=== PATIENT | female | born 1985 | race Caucasian/White ===

== ENCOUNTER 2018-07-31 14:47 | Inpatient (IN) ==
[2018-07-31 14:59] VITALS: BMI 27.2
--- NOTE | 2018-07-31 15:18 | DR.SOBA ---
HPI - Time Seen Time seen: 15:14 - Primary Care Physician Primary Care Physician: FELICIA - Complaints Chief Complaint Doctors Comments: Patient is complaining of cold, cough, SOB for the past two weeks getting progressively worst. Patient states she has been taking over the counter medicines without improvement. She smokes one pack cigarettes daily. States she do not have a local doctor. She denies chest pain but has been wheezing at times. she has been getting dizzy when she stand. States her periods has been regular and she is taking control pills. Chief Complaint:: PT C/O SOB, C/C/C, FEVER, CHILLS, FLU LIKE SYMPTOMS. PT STATES SHE HAS BEEN BATTLING THESE SYMPTOMS 2 WEEKS. PT STATES SHE HAS A HISTORY OF PNUEMONIA. NOTED PT'S SPO2 TO BE 87-91% ON RA AND SHE IS HAVING DIFFICULTY GETTING WORDS OUT D/T THE SOB - Reviewed Nurses Notes Reviewed: Yes - Source History Provided: Patient - Mode of Arrival Mode of Arrival: Ambulatory - Timing Onset of Chief Complaint: 07/17/18 - Duration Duration: Weeks - Context Onset:: At Rest PE Risk Factors:: None History of:: None Currently on:: Neither Prehospital Care:: None - Modifying Factors Worsens:: Exertion Improves:: Nothing - Associated Signs and Symptoms Associated Signs and Symptoms: Wheeze, Cough, Nasal Congestion - If Chest Pain Quality: denies: Sharp, Stabbing, Squeezing, Pressure like, Heavy, Crushing, Burning, Aching, Pleuritic, Other Location: denies: Right Upper Chest, Right Lower Chest, Left Upper Chest, Left Lower Chest, Substernal, Chest Wall - If Cough Cough: Nonproductive PMH - PMH Past Medical History: No Past Surgical History: Yes (removal of cyst) - Family History History of Family Medical Conditions: Yes Family Medical History: Diabetes Mellitus - Social History Does patient currently use any type of tobacco product: Yes Have you used tobacco products in the last 12 months: Yes Type of Tobacco Use: Cigarettes Does any household member use tobacco: Yes Alcohol Use: None Do you use any recreational Drugs:: No Lives With: Family Lives Where: Home - infectious screening In the last 2 months have you had wt loss of >10#?: NO Have you had fever, night sweats or hemotysis?: No Have you traveled outside the country in the last 6 months?: No Isolation: Standard ROS - Review of Systems Constitutional: No Symptoms Reported Eyes: No Symptoms Reported ENTM: No Symptoms Reported, Nose Discharge, Nose Congestion Respiratoy: Non-Productive Cough, Short of Breath, Wheezing Cardiovascular: No Symptoms Reported. negative: See HPI, Chest Pain, Edema, Palpitations, Syncope, Cyanosis, Skin Mottling, Other Gastrointestinal/Abdominal: No Symptoms Reported, Nausea Genitourinary: No Symptoms Reported. negative: See HPI, Discharge, Dysuria, Frequency, Hematuria, Pain, Bleeding, Other Neurological: No Symptoms Reported. negative: See HPI, Anxiety, Depressed, Emotional Problems, Headache, Numbness, Paresthesia, Pre-existing Deficit, Seizure, Tingling, Tremors, Weakness, Dizziness, Problems Walking, Speech Problem, Other Musculoskeletal: No Symptoms Reported Integumentary: No Symptoms Reported Hematologic/Lymphatic: No Symptoms Reported. negative: See HPI, Anemia, Blood Clots, Easy Bleeding, Easy Bruising, Swollen Glands, Lymphadenopathy, Other Endocrine: No Symptoms Reported Psychiatric: No Symptoms Reported. negative: See HPI, Anxiety, Depression, Hallucinations, Excessive crying, Suicidal, Other PE - General Limitations: No Limitations General Appearance: Alert, In No Apparent Distress - Head Head Exam: Normal Inspection, Atraumatic, Normocephalic - Eyes Eye exam: Normal Appearance, PERRL, EOMI. negative: Scleral Icterus, Conjunctival Injection, Nystagmus, Miosis, Mydrasis, Periorbital Swelling, Periorbital Tenderness, Other - ENT ENT Exam: Normal Exam, Normal Oropharynx, Normal External Ear Exam, Mucous Membranes Moist, TM's Normal Bilaterally - Neck Neck Exam: Normal Inspection, Full ROM, Trachea Midline - Chest Chest Inspection: Normal Inspection, Symmetric Chest Wall Rise - Respiratory Respiratory Exam: Normal Lung Sounds Bilat Respiratory Exam: Bilateral Clear to Auscultation - Cardiovascular Cardiovascular Exam: Regular Rate, Normal Rhythm, Normal Heart Sounds - Abdominal Exam Abdominal Exam: Normal Inspection, Normal Bowel Sounds, Soft Abdominal Tenderness: negative: RUQ, RLQ, LUQ, LLQ, Epigastrium, Suprapubic, Diffuse, Mild, Moderate, Severe, Other - Extremities Extremities Exam: Normal Inspection, Full ROM, Normal Capillary Refill. negative: Tenderness, Edema, Joint Swelling, Calf Tenderness, Other - Back Back Exam: Normal Inspection, Full ROM. negative: Tenderness, (R) CVA Tenderness, (L) CVA Tenderness, Muscle Spasm, Paraspinal Tenderness, Vertebral Tenderness, Rashes, (R) Sciatic Notch Tenderness, (L) Sciatic Notch Tendern, (R) Straight Leg Raise, (L) Straight Leg Raise, Other - Neurologic Neurological Exam: Alert, Oriented X3, CN II-XII Intact, Normal Gait, Reflexes Normal - Psychiatric Psychiatric Exam: Normal Affect, Normal Mood - Skin Skin Exam: Warm, Dry, Intact, Normal Color - Vital Signs Vitals: Temperature 97.9 F Pulse Rate [Left Brachial] 73 Pulse Rate [Standing] 82 Pulse Rate [Sitting] 91 Pulse Rate [Lying] 82 Pulse Rate 99 Respiratory Rate 20 Blood Pressure [Right Arm] 101/63 Blood Pressure [Standing] 116/71 Blood Pressure [Sitting] 129/76 Blood Pressure [Lying] 122/73 Blood Pressure 123/72 O2 Sat by Pulse Oximetry 93 Course - Reevaluation 1st: Improved - Consultation Called: 18:04 Call Returned: 18:04 (Dr. Freeman to admit) - Education/Counseling Education/Counseling: Patient, Family Educated On: Treatment, Diagnosis, Needs for Follow Up ROR - Labs Reviewed Laboratory Results Reviewed?: Yes (All labs and x-ray results reviewed and discussed with patient) Result Diagrams: 07/31/18 15:26 07/31/18 15:26 - XRAY XRAY Interpreted by: Radiologist (CXR: Prominent hilar structures may reflect adenopathy. Bilateral pumonary infiltrates consistent with pneumonia, edema or fibrosis.) XRAY Findings: CTA chest: No pulmonary embolus. Siffuse patchy ground-glass opacities a - Labs Reviewed Laboratory: WBC 15.5 X10^3/uL (3.6-10.0) H 07/31/18 15: RBC 4.07 X10^6/uL (3.5-5.4) 07/31/18 15:26 Hgb 11.9 g/dL (12.0-16.0) L 07/31/18 15: Hct 35.0 % (36.0-47.0) L 07/31/18 15:26 MCV 86.1 fL (80.0-100.0) 07/31/18 15: MCH 29.2 pg (27.0-34.0) 07/31/18 15: MCHC 33.9 g/dL (33.0-35.0) 07/31/18 15: RDW 14.1 % (11.6-16.5) 07/31/18 15: Plt Count 594 X10^3/uL (150.0-450.0) H 07/31/18 15: MPV 7.4 fL (7.4-11.0) 07/31/18 15: Neut % (Auto) 75.9 % (42.0-75.0) H 07/31/18 15: Lymph % (Auto) 17.7 % (21.0-51.0) L 07/31/18 15: [place] % (Auto) 1.7 % (0.0-13.0) 07/31/18 15: Eos % (Auto) 4.1 % (0.9-2.9) H 07/31/18: Baso % (Auto) 0.6 % (0.2-1.0) 07/31/18 15: Neut # (Auto) 11.8 x10^3/uL (2.2-4.8) H 07/31/18 15: Lymph # (Auto) 2.7 X10^3/uL (1.3-2.9) 07/31/18 15:26 [place] # (Auto) 0.3 x10^3/uL (0.3-0.8) 07/31/18 15: Eos # (Auto) 0.6 x10^3/uL (0.0-0.2) H 07/31/18: Baso # (Auto) 0.1 X10^3/uL (0.0-0.1) 07/31/18: Absolute Nucleated RBC 0.0 /100WBC 07/31/18 15: INR Target Range - 07/31/18: INR 1.04 (0.8-1.3) 07/31/18 15: APTT 34.1 SECONDS (22.9-36.5) 07/31/18 15: PTT Comment - 07/31/18 15: D-Dimer 1670 ng/mL (0-400) H* 07/31/18 15: Sodium 137 mmol/L (136-145) 07/31/18 15:26 Corrected Sodium 137 mmol/L (136-145) 07/31/18 15:26 Potassium 3.3 mmol/L (3.5-5.1) L 07/31/18 15:26 Chloride 103 mmol/L (98-107) 07/31/18 15:26 Carbon Dioxide 22.7 mmol/L (21-32) 07/31/18 15:26 BUN 16 mg/dL (7-18) 07/31/18 15:26 Creatinine 0.77 mg/dL (0.55-1.02) 07/31/18 15:26 Est GFR (MDRD) Af Amer > 60 (>60) 07/31/18 15:26 Est GFR (MDRD) Non-Af > 60 (>60) 07/31/18 15:26 Glucose 117 mg/dL (65-99) H 07/31/18 15:26 Calcium 8.6 mg/dL (8.5-10.1) 07/31/18 15:26 Corrected Calcium 9.8 mg/dL (8.5-10.1) 07/31/18 15:26 Total Bilirubin 0.10 mg/dL (0.2-1.0) L 07/31/18 15:26 AST 27 Units/L (15-37) 07/31/18 15:26 ALT 10 Units/L (12-78) L 07/31/18 15:26 Alkaline Phosphatase 160 Units/L (46-116) H 07/31/18 15:26 Creatine Kinase 31 Units/L (26-192) 07/31/18 15:26 CK-MB (CK-2) < 1.0 ng/mL (0-4.0) 07/31/18 15:26 CK/CKMB % Calc 3.2 % (<4) 07/31/18 15:26 Troponin I < 0.02 ng/mL (0-1.5) 07/31/18 15:26 B-Natriuretic Peptide 72.4 pg/mL (0-79) 07/31/18 15:26 Total Protein 7.0 g/dL (6.4-8.2) 07/31/18 15:26 Albumin 2.5 g/dL (3.4-5.0) L 07/31/18 15:26 Globulin 4.5 g/dL (2.5-4.5) 07/31/18: Albumin/Globulin Ratio 0.6 Ratio (1.1-2.1) L 07/31/18: HCG, Qual Negative <10 mIU/mL 07/31/18: Specimen Type Clean catch urine 07/31/18 15: Urine Color Dark yellow (YELLOW) 07/31/18: Urine Appearance Clear (CLEAR) 07/31/18: Urine pH 5.0 (5.0 - 8.0) 07/31/18 15: Ur Specific [place] 1.020 (1.000-1.030) 07/31/18: Urine Protein 2+ (NEGATIVE) 07/31/18: Urine Glucose (UA) Negative (NEGATIVE) 07/31/18 15: Urine Ketones Negative (NEGATIVE) 07/31/18 15: Urine Occult Blood 2+ (NEGATIVE) 07/31/18: Urine Nitrite Negative (NEGATIVE) 07/31/18: Urine Bilirubin 1+ (NEGATIVE) 07/31/18 15: Urine Urobilinogen 2+ (NORMAL) 07/31/18 15: Ur Leukocyte Esterase 1+ (NEGATIVE) 07/31/18 15: Urine RBC 0-2 /HPF (NONE SEEN) 07/31/18 15: Urine WBC 0-2 /HPF (NONE SEEN) 07/31/18 15: Ur Squamous Epith Cells Moderate /HPF (NEGATIVE) 07/31/18 15: Urine Bacteria Trace /HPF (NEGATIVE) 07/31/18 15: Ur Culture Indicated? No/not indicated 07/31/18 15: Urine Opiates Screen Negative (NEG=<300) 07/31/18 15: Urine Methadone Screen Negative (NEG=<300) 07/31/18: Ur Barbiturates Screen Negative (NEG=<200) 07/31/18 15: Ur Phencyclidine Scrn Negative (NEG=<25) 07/31/18 15: Ur Amphetamines Screen Negative (NEG=<1000) 07/31/18 15: U Benzodiazepines Scrn Negative (NEG=<200) 07/31/18 15: Urine Cocaine Screen Negative (NEG=<300) 07/31/18 15:28 U Marijuana (THC) Screen Negative (NEG=<50) 07/31/18 15:28 Influenza Type A (PCR) Negative (NEGATIVE) 07/31/18 15:28 Influenza Type B (PCR) Negative (NEGATIVE) 07/31/18 15:28 - Diagnosis Discharge Problem: Bilateral pulmonary infiltrates on CXR, Hypoxemia, Pneumonia, Hypokalemia - Discharge Plan Condition: Stable - Follow ups/Referrals Follow ups/Referrals: CRESCENCIO ALCOCER [Primary Care Provider] - 3 days - Instructions
[2018-07-31 15:35] LABS: BASOPHILS # (AUTO) 0.1 X10^3/uL (0.0-0.1); BASOPHILS % (AUTO) 0.6 % (0.2-1.0); EOSINOPHILS # (AUTO) 0.6 x10^3/uL (0.0-0.2); EOSINOPHILS % (AUTO) 4.1 % (0.9-2.9); HEMOGLOBIN 11.9 g/dL (12.0-16.0); LYMPHOCYTES # (AUTO) 2.7 X10^3/uL (1.3-2.9); LYMPHOCYTES % (AUTO) 17.7 % (21.0-51.0); MEAN CORPUSCULAR HEMOGLOBIN 29.2 pg (27.0-34.0); MEAN CORPUSCULAR HGB CONC 33.9 g/dL (33.0-35.0); MEAN CORPUSCULAR VOLUME 86.1 fL (80.0-100.0); MEAN PLATELET VOLUME 7.4 fL (7.4-11.0); MONOCYTES # (AUTO) 0.3 x10^3/uL (0.3-0.8); MONOCYTES % (AUTO) 1.7 % (0.0-13.0); NEUTROPHILS # (AUTO) 11.8 x10^3/uL (2.2-4.8); NEUTROPHILS % (AUTO) 75.9 % (42.0-75.0); PLATELET COUNT 594 X10^3/uL (150.0-450.0); RED BLOOD COUNT 4.07 X10^6/uL (3.5-5.4); RED CELL DISTRIBUTION WIDTH 14.1 % (11.6-16.5); WHITE BLOOD COUNT 15.5 X10^3/uL (3.6-10.0)
[2018-07-31 15:51] LABS: SERUM PREGNANCY TEST, QUAL NEGATIVE <10 mIU/mL
[2018-07-31 15:56] LABS: BLOOD UREA NITROGEN 16 mg/dL (7-18); CALCIUM 8.6 mg/dL (8.5-10.1); CARBON DIOXIDE 22.7 mmol/L (21-32); CHLORIDE 103 mmol/L (98-107); COR NA(FOR HYPERGLY) 137 mmol/L (136-145); CREATININE 0.77 mg/dL (0.55-1.02); SODIUM 137 mmol/L (136-145); TROPONIN I < 0.02 ng/mL (0-1.5); eGFR NON BLACK RACES > 60 (>60)
[2018-07-31 16:00] LABS: ALANINE AMINOTRANSFERASE 10 Units/L (12-78); ALBUMIN 2.5 g/dL (3.4-5.0); ALKALINE PHOSPHATASE 160 Units/L (46-116); ASPARTATE AMINO TRANSFERASE 27 Units/L (15-37); COR CA(FOR HYPOALB) 9.8 mg/dL (8.5-10.1); CREATINE KINASE 31 Units/L (26-192); CREATINE KINASE MB < 1.0 ng/mL (0-4.0)
--- NOTE | 2018-07-31 16:07 | RAD ---
Examination: Chest, PA and lateral views History: SOB Comparison 05/28/2016 Findings: Continued normal heart size. Prominent hilar structures bilaterally. Diffuse interstitial and alveolar infiltrates as previously described. No discrete mass, pneumothorax or pleural fluid. Impression: Findings described are very similar to multiple prior chest studies. Prominent hilar structures may reflect adenopathy. Bilateral pulmonary infiltrates consistent with pneumonia, edema or peribronchial fibrosis. Is there history of sarcoidosis? Chest CT may provide additional evaluation if specific diagnosis has not been established. Reported By:
[2018-07-31 16:08] LABS: CKMB % 3.2 % (<4)
[2018-07-31 16:08] LABS: BILIRUBIN,URINE 1+ (NEGATIVE); BLOOD/HEMOGLOBIN,URINE 2+ (NEGATIVE); GLUCOSE, URINE NEGATIVE (NEGATIVE); KETONES,URINE NEGATIVE (NEGATIVE); LEUKOCYTE ESTERASE ,URINE 1+ (NEGATIVE); NITRITES,URINE NEGATIVE (NEGATIVE); PROTEIN,URINE 2+ (NEGATIVE); UROBILINOGEN,URINE 2+ (NORMAL)
[2018-07-31 16:10] LABS: B-TYPE NATRIURETIC PEPTIDE 72.4 pg/mL (0-79)
[2018-07-31 16:17] LABS: APPEARANCE,URINE CLEAR (CLEAR); BACTERIA,URINE TRACE /HPF (NEGATIVE); COLOR,URINE DARK YELLOW (YELLOW); RBC,URINE 0-2 /HPF (NONE SEEN); SQUAMOUS EPITHELIAL CELL,UR MODERATE /HPF (NEGATIVE)
[2018-07-31] MEDS ORDERED: K-LYTE EFFERVESCENT PO STA (16:29)
[2018-07-31] MEDS ORDERED: ROCEPHIN VIAL 1 GRAM IVP ONE (16:30)
[2018-07-31] MEDS ORDERED: LASIX IVP STA (16:30)
[2018-07-31] MEDS ORDERED: K-LYTE EFFERVESCENT ONE (17:44)
[2018-07-31] MEDS ORDERED: ROCEPHIN VIAL 1 GRAM ONE (17:44)
--- NOTE | 2018-07-31 17:54 | CT ---
CT ANGIOGRAPHY OF THE CHEST CLINICAL HISTORY: 32-year-old female with shortness of breath, cough and congestion with fever and chills. COMPARISON: Chest radiograph this date. TECHNIQUE: CT angiogram of the chest was performed following the uncomplicated administration of 75 mL Omnipaque 350 intravenous contrast as per routine pulmonary embolus protocol. Coronal and Sagittal reformats provided. MIP reformats are submitted for review. FINDINGS: No pulmonary embolus is seen. There is no thoracic aortic dissection. The heart is normal in size and there is no pericardial effusion. No significant axillary adenopathy with multiple AP window, pretracheal, paratracheal and subcarinal lymph nodes measuring up to 1.6 cm in the subcarinal location. Diffuse patchy ground-glass opacities throughout the lungs bilaterally in a mosaic attenuation pattern without definitive mass lesion. Underlying nodule is not excluded. No effusion or pneumothorax. The trachea and mainstem bronchi are patent. Imaged upper abdomen is without acute abnormality The arteriovascular structures are within normal limits. Soft tissues are normal. The osseous structures are intact without fracture or malalignment. IMPRESSION: 1. No pulmonary embolus. 2. Diffuse patchy ground-glass opacities and mosaic attenuation pattern throughout the lungs bilaterally with enlarged lymph nodes within the mediastinum. Multifocal multi lobar pneumonia, sarcoid and other inflammatory process are within the differential. Correlate with serology and clinically and follow-up to resolution. See above. Reported By:
[2018-07-31] MEDS ORDERED: TUSSIONEX PENNKINETIC SUSP PO PRN (18:06)
[2018-07-31] MEDS ORDERED: SALINE 3% 15 ML NEB TX NEB ONE (18:24)
[2018-07-31] MEDS ORDERED: FLUVIRIN IM ONE (19:00)
[2018-07-31] MEDS ORDERED: NS 1/2 1000 ML IV 1,000 ML IV ONE (19:31)
[2018-07-31] MEDS: ROCEPHIN VIAL 1 GRAM IVP SCH (19:46)
[2018-07-31] MEDS: LEVAQUIN PREMIX IV 750 MG 750 MG/150 ML BAG IV SCH (19:46)
[2018-07-31] MEDS: NS 1/2 1000 ML IV 1,000 ML IV SCH (19:47)
[2018-07-31] MEDS: PULMICORT NEB TX 0.5 MG NEB SCH (20:26)
[2018-07-31] MEDS: DUONEB 0.5 MG/3 MG NEB SCH (20:26)
[2018-07-31] MEDS: ROBITUSSIN DM PO SCH (21:06)
[2018-07-31] MEDS ORDERED: ZOFRAN TAB 4 MG PO PRN (23:09)
[2018-08-01] MEDS: DUONEB 0.5 MG/3 MG NEB SCH ×6 (00:36→20:11)
[2018-08-01] MEDS ORDERED: CHLORASEPTIC SPRAY MT PRN (00:58)
[2018-08-01] MEDS ORDERED: CHLORASEPTIC SPRAY MT ONE (01:01)
[2018-08-01 05:22] LABS: BASOPHILS # (AUTO) 0.1 X10^3/uL (0.0-0.1); BASOPHILS % (AUTO) 0.6 % (0.2-1.0); EOSINOPHILS # (AUTO) 0.3 x10^3/uL (0.0-0.2); EOSINOPHILS % (AUTO) 3.6 % (0.9-2.9); HEMATOCRIT 30.4 % (36.0-47.0); HEMOGLOBIN 10.6 g/dL (12.0-16.0); LYMPHOCYTES % (AUTO) 21.6 % (21.0-51.0); MEAN CORPUSCULAR HEMOGLOBIN 30.9 pg (27.0-34.0); MEAN CORPUSCULAR HGB CONC 34.8 g/dL (33.0-35.0); MEAN CORPUSCULAR VOLUME 88.8 fL (80.0-100.0); MEAN PLATELET VOLUME 7.4 fL (7.4-11.0); MONOCYTES # (AUTO) 0.2 x10^3/uL (0.3-0.8); MONOCYTES % (AUTO) 1.7 % (0.0-13.0); NEUTROPHILS # (AUTO) 6.6 x10^3/uL (2.2-4.8); NEUTROPHILS % (AUTO) 72.5 % (42.0-75.0); PLATELET COUNT 487 X10^3/uL (150.0-450.0); RED BLOOD COUNT 3.42 X10^6/uL (3.5-5.4); RED CELL DISTRIBUTION WIDTH 13.9 % (11.6-16.5); WHITE BLOOD COUNT 9.1 X10^3/uL (3.6-10.0)
[2018-08-01 05:30] LABS: ALANINE AMINOTRANSFERASE 8 Units/L (12-78); ALBUMIN 2.1 g/dL (3.4-5.0); ALKALINE PHOSPHATASE 133 Units/L (46-116); ASPARTATE AMINO TRANSFERASE 17 Units/L (15-37); BLOOD UREA NITROGEN 6 mg/dL (7-18); CARBON DIOXIDE 23.4 mmol/L (21-32); CHLORIDE 105 mmol/L (98-107); COR CA(FOR HYPOALB) 9.5 mg/dL (8.5-10.1); COR NA(FOR HYPERGLY) 139 mmol/L (136-145); CREATININE 0.64 mg/dL (0.55-1.02); SODIUM 139 mmol/L (136-145); TOTAL PROTEIN 6.1 g/dL (6.4-8.2); eGFR NON BLACK RACES > 60 (>60)
[2018-08-01] MEDS ORDERED: KLOR-CON PO PRN (05:35)
[2018-08-01] MEDS ORDERED: POTASSIUM CHL 60 MEQ/NS 0.45% 500 ML IV PRN (05:35)
[2018-08-01] MEDS ORDERED: K-RIDER 10 MEQ/NS 100 ML 10 MEQ/100 ML BAG IV PRN (05:35)
[2018-08-01] MEDS ORDERED: POTASSIUM CHL 40 MEQ/NS 0.45% 500 ML IV PRN (05:35)
[2018-08-01] MEDS ORDERED: MICRO K EXTEN CAP 10 MEQ PO PRN (05:35)
[2018-08-01] MEDS ORDERED: K-DUR TAB 20 MEQ PO PRN (05:35)
[2018-08-01] MEDS ORDERED: POTASSIUM CHLORIDE LIQ 20 MEQ UDC PO PRN (05:35)
[2018-08-01] MEDS ORDERED: POTASSIUM CHLORIDE LIQ 20 MEQ UDC ONE (05:56)
[2018-08-01] MEDS ORDERED: MAGNESIUM SULFATE 1 GRAM/100 mL PREMIX 1 G/100 ML BAG IV ONE (05:56)
[2018-08-01] MEDS: MAGNESIUM SULFATE 1 GRAM/100 mL PREMIX 1 GM/100 ML BAG IV PRN ×2 (06:06→08:28)
[2018-08-01] MEDS ORDERED: TYLENOL 325 MG TAB PO PRN (06:59)
--- NOTE | 2018-08-01 07:52 | RAD ---
STUDY: CHEST, TWO VIEWS History: Pneumonia. Comparison: July 31, 2018 Findings: The trachea is midline. Extensive faint airspace opacities throughout both lungs is again noted. There is relative sparing of the lung apices. The cardiac silhouette, mediastinum and osseous structures are unchanged. IMPRESSION: 1. No significant change in airspace opacities in both lungs as described. Reported By:
[2018-08-01] MEDS ORDERED: LEXAPRO ONE (08:15)
[2018-08-01] MEDS: ROBITUSSIN DM PO SCH ×4 (08:26→21:01)
[2018-08-01] MEDS: LEXAPRO PO SCH (08:27)
[2018-08-01] MEDS: ROCEPHIN VIAL 1 GRAM IVP SCH (08:27)
[2018-08-01] MEDS: LEVAQUIN PREMIX IV 750 MG 750 MG/150 ML BAG IV SCH (08:29)
[2018-08-01] MEDS: PATIENT'S HOME MEDICATION PO SCH (08:34)
[2018-08-01] MEDS: PULMICORT NEB TX 0.5 MG NEB SCH ×2 (08:41→20:11)
[2018-08-01] MEDS ORDERED: ABILIFY PO SCH (09:00)
[2018-08-01] MEDS: NS 1/2 1000 ML IV 1,000 ML IV SCH (10:25)
[2018-08-01] MEDS: NICOTINE PATCH TD SCH (14:13)
[2018-08-01] MEDS ORDERED: NS 1/2 1000 ML IV 1,000 ML IV ONE (21:28)
--- NOTE | 2018-08-01 21:34 | DR.H&P ---
H&P - History & Physical for Day of: H&P Date: 07/31/18 - Chief Complaint Chief Complaint: COUGH, COLD, SOB, FEVER, FLU-LIKE SYMPTOMS - History of Present Illness History of Present Illness: IS A 32 YEAR OLD WHITE FEMALE WHO PRESENTED TO THE EMERGENCY ROOM WITH COMPLAINTS OF COUGH, COLD, AND SHORTNESS OF BREATH FOR THE PAST WELL. SHE REPORTS THAT SYMPTOMS HAVE PROGRESSIVELY GOTTEN WORSE. SHE DENIES CHEST PAIN, BUT REPORTS WHEEZING AND DIZZINESS AT TIMES. SHE REPORTS FEVER, CHILLS, AND FLU-LIKE SYMPTOMS AT HOME. SHE REPORTS SMOKING ONE PACK OF CIGARETTES/DAY. ON ARRIVAL TO THE ER, HER OXYGEN SATURATIONS ARE NOTED TO BE 87- 91% ON ROOM AIR AND SHE IS NOTED TO HAVE DIFFICULTY BREATHING. VITALS WERE 97.9-99-24-87%RA-123/72. OXYGEN SATURATION WAS NOTED TO INCREASE TO 94% ON NASAL CANNULA AT 2L/MIN. LABS WERE OBTAINED. ABNORMAL LAB VALUES INCLUDE THE FOLLOWING: WBC 15.5, HGB 11.9, HCT 35.0, PLT COUNT 594, D-DIMER 1670, POTASSIUM 3.3, GLUCOSE 117, TOTAL BILI 0.10, ALT 10, ALK PHOS 160, ALBUMIN 2.5. BLOOD AND SPUTUM CULTURES OBTAINED AND PENDING. EKG REVEALED SINUS RHYTHM WITH HR 83. CHEST XRAY REVEALED: Findings described are very similar to multiple prior chest studies. Prominent hilar structures may reflect adenopathy. Bilateral pulmonary infiltrates consistent with pneumonia, edema or peribronchial fibrosis. Is there history of sarcoidosis? Chest CT may provide additional evaluation if specific diagnosis has not been established. A CHEST CTA WAS OBTAINED AND REVEALED: No pulmonary embolus. Diffuse patchy ground-glass opacities and mosaic attenuation pattern throughout the lungs bilaterally with enlarged lymph nodes within the mediastinum. Multifocal multi lobar pneumonia, sarcoid and other inflammatory process are within the differential. Correlate with serology and clinically and follow-up to resolution. SHE WAS GIVEN ROCEPHIN 1GM IV X 1 AND K-LYTE MEQ PO X 1 IN THE ER AND ADMITTED FOR FURTHER EVALUATION AND TREATMENT OF PNEUMONIA, HYPOXEMIA, AND HYPOKALEMIA. SHE WAS STARTED ON LEVAQUIN 750MG IV DAILY AND ROCEPHIN 1GM IV DAILY WELL RESPIRATORY TX, SUPPLEMENTAL OXYGEN, AND POTASSIUM REPLACEMENT PER PROTOCOL. WE PLAN TO FOLLOW UP WITH AM LABS AND CHEST XRAY AND CONTINUE TO MONITOR. - Past Medical History Past Medical History: Depression - Past Surgical History Surgical History: Unknown - Family History Family Medical History: Diabetes Mellitus, [place] - Social History Does patient currently use any type of tobacco product: Yes Have you used tobacco products in the last 12 months: Yes Type of Tobacco Use: Cigarettes Does any household member use tobacco: Yes Alcohol Use: Rarely Drug Use: None - Medications Home Medications: No Known Drug Allergies Allergy (Verified 07/31/18 14:54) CONTINUE taking the following medications aripiprazole 20 mg PO DAILY 07/31/18 [History] drospirenone-ethinyl estradiol [Gianvi (28)] 1 tab PO DAILY 07/31/18 [History] escitalopram oxalate 20 mg PO DAILY 07/31/18 [History] ondansetron 4 mg PO TID PRN 07/31/18 [History] risperidone 1 mg PO HS 07/31/18 [History] - Review of Systems Constitutional: See HPI, Fever, Chills Eyes: No Symptoms Reported ENT: Nose Discharge Respiratory: See HPI, Cough, Shortness of Breath, Sputum, Wheezing Cardiovascular: No Symptoms Reported Gastrointestinal: No Symptoms Reported Genitourinary: No Symptoms Reported Musculoskeletal: No Symptoms Reported Skin: No Symptoms Reported Neurological: No Symptoms Reported - Physical Exam Vital Signs: Temperature 98.6 F Pulse Rate [Left Brachial] 76 Pulse Rate [Standing] 82 Pulse Rate [Sitting] 91 Pulse Rate [Lying] 82 Pulse Rate 79 Respiratory Rate 18 Blood Pressure [Left Arm] 104/63 Blood Pressure [Right Arm] 110/57 Blood Pressure [Standing] 116/71 Blood Pressure [Sitting] 129/76 Blood Pressure [Lying] 122/73 Blood Pressure 123/72 O2 Sat by Pulse Oximetry 97 Oriented: Normal Eyes: Normal Ear: Normal Nose: Normal Throat: Normal Respiratory: Wheezes Throughout Cardiovascular: Normal : Normal Auscultation: Bowel Sounds: Normal Palpation: Normal Tenderness: Normal Skin: Normal Musculoskeletal: Normal Psychiatric: Normal Mood Description: Calm Affect: Normal Speech Pattern: Clear, Appropriate - Assessment/Plan (1) Pneumonia Qualifiers: Pneumonia type: due to unspecified organism Laterality: bilateral Lung location: unspecified part of lung Qualified Code(s): J18.9 - Pneumonia, unspecified organism Status: Acute Plan: ADMIT, PNEUMONIA PROTOCOL WITH LEVAQUIN IV, ROCEPHIN IV, RESPIRATORY TX, SUPPLEMENTAL OXYGEN, CONTINUE TO MONITOR (2) Hypokalemia Status: Acute Plan: POTASSIUM REPLACEMENT PER PROTOCOL, CONTINUE TO MONITOR (3) Hypoxemia Status: Acute Plan: SUPPLEMENTAL OXYGEN, RESPIRATORY TX, CONTINUE TO MONITOR - Allergies Allergies/Adverse Reactions: Allergies Allergy/AdvReac Type Severity Reaction Status Date / Time No Known Drug Allergies Allergy Verified 07/31/18 14:54
[2018-08-01] MEDS ORDERED: RisperDAL TAB 1 MG PO SCH (23:00)
[2018-08-02] MEDS: DUONEB 0.5 MG/3 MG NEB SCH ×3 (00:42→08:50)
[2018-08-02 05:19] LABS: BASOPHILS # (AUTO) 0.1 X10^3/uL (0.0-0.1); BASOPHILS % (AUTO) 0.8 % (0.2-1.0); EOSINOPHILS # (AUTO) 0.2 x10^3/uL (0.0-0.2); EOSINOPHILS % (AUTO) 3.2 % (0.9-2.9); HEMATOCRIT 31.2 % (36.0-47.0); HEMOGLOBIN 10.4 g/dL (12.0-16.0); LYMPHOCYTES # (AUTO) 2.2 X10^3/uL (1.3-2.9); LYMPHOCYTES % (AUTO) 29.2 % (21.0-51.0); MEAN CORPUSCULAR HEMOGLOBIN 29.5 pg (27.0-34.0); MEAN CORPUSCULAR HGB CONC 33.5 g/dL (33.0-35.0); MEAN PLATELET VOLUME 7.4 fL (7.4-11.0); MONOCYTES # (AUTO) 0.3 x10^3/uL (0.3-0.8); MONOCYTES % (AUTO) 4.4 % (0.0-13.0); NEUTROPHILS # (AUTO) 4.6 x10^3/uL (2.2-4.8); NEUTROPHILS % (AUTO) 62.4 % (42.0-75.0); PLATELET COUNT 488 X10^3/uL (150.0-450.0); RED BLOOD COUNT 3.54 X10^6/uL (3.5-5.4); RED CELL DISTRIBUTION WIDTH 13.8 % (11.6-16.5); WHITE BLOOD COUNT 7.5 X10^3/uL (3.6-10.0)
[2018-08-02 05:41] LABS: ALANINE AMINOTRANSFERASE 13 Units/L (12-78); ALKALINE PHOSPHATASE 144 Units/L (46-116); ASPARTATE AMINO TRANSFERASE 27 Units/L (15-37); BLOOD UREA NITROGEN 4 mg/dL (7-18); CALCIUM 8.2 mg/dL (8.5-10.1); CHLORIDE 107 mmol/L (98-107); COR CA(FOR HYPOALB) 9.8 mg/dL (8.5-10.1); CREATININE 0.61 mg/dL (0.55-1.02); SODIUM 141 mmol/L (136-145); TOTAL PROTEIN 5.8 g/dL (6.4-8.2); eGFR NON BLACK RACES > 60 (>60)
[2018-08-02 08:14] VITALS: BP 109/61
[2018-08-02] MEDS ORDERED: LEXAPRO ONE (08:50)
[2018-08-02] MEDS: PULMICORT NEB TX 0.5 MG NEB SCH (08:50)
[2018-08-02] MEDS ORDERED: PATIENT'S HOME MEDICATION PO SCH (09:00)
[2018-08-02] MEDS: LEXAPRO PO SCH (09:28)
[2018-08-02] MEDS: NICOTINE PATCH TD SCH (09:28)
[2018-08-02] MEDS: LEVAQUIN PREMIX IV 750 MG 750 MG/150 ML BAG IV SCH (09:28)
[2018-08-02] MEDS: ROBITUSSIN DM PO SCH (09:29)
[2018-08-02] MEDS: ROCEPHIN VIAL 1 GRAM IVP SCH (09:29)
[2018-08-02] MEDS: PATIENT'S HOME MEDICATION PO SCH (09:33)
[2018-08-02] MEDS ORDERED: MILK OF MAGNESIA PO SCH (21:00)
[2018-08-02] MEDS ORDERED: COLACE CAP 100 MG PO SCH (21:00)
== END 2018-08-02 12:00 | disposition home or self-care (01) | DRG 195 ==
LOC: ER 14:53 → MED/SURG 18:05
PROVIDERS: ADMIT Internal Medicine; ATTEND Internal Medicine
DX: Z23 Encounter for immunization; R09.02 Hypoxemia; E87.6 Hypokalemia; R68.89 Other general symptoms and signs; J18.8 Other pneumonia, unspecified organism; R06.02 Shortness of breath
CPT/HCPCS: 36415; 71020; 71046; 71275; 80053; 80307; 81001; 82550; 82553; 83605; 83735; 83880; 84132; 84484; 84703; 85025; 85378; 85610; 85730; 87040; 87070; 87205; 87502; 93005; 94640; 94669; 94760; 96365; 96374; 99284; A4216; A4222; G0434; J0696; J1956; J3475; J3490; J7620; J7626; J8499